=== PATIENT | female | born 2000 | race Caucasian/White ===

== ENCOUNTER 2024-01-08 15:43 | Outpatient (CLI) | payer BC, SELFPAY ==
--- NOTE | ~2024-01-08 | US_ITS ---
US breast RT limited DATE: 01/08/2024 15:54 INDICATION: Right 9:00 breast lump TECHNIQUE: Real-time and color flow imaging targeted right breast 9:00 6 cm from nipple an area of pa lpable lump COMPARISON: None FINDINGS: There is a circumscribed solid lesion with mildly lobular outline, with mild internal vascu larity on color flow imaging, with some areas of through transmission and some areas of posterior sha dowing. The lesion measures approximately 1.8 x 2.9 x 2.9 cm dimension. IMPRESSION: Probable benign fibroadenoma BI-RADS Category 3: Probably benign Recommendation: 6 month right targeted breast ultrasound follow-up If tissue diagnosis is desired, this would be amenable to ultrasound-guided percutaneous needle biops y. Reviewed, dictated and finalized at [facility]. Reviewed, dictated and finalized at [facility]. IMPRESSION: Probable benign fibroadenoma BI-RADS Category 3: Probably benign Recommendation: 6 month right targeted breast ultrasound follow-up If tissue diagnosis is desired, this would be amenable to ultrasound-guided per cutaneous needle biopsy.
== END 2024-01-08 15:44 ==
LOC: MICIMG 15:43
PROVIDERS: PCP Obstetrics & Gynecology; Visit Provider Obstetrics & Gynecology
DX: N63.10 Unspecified lump in the right breast, unspecified quadrant (principal); R92.8 Other abnormal and inconclusive findings on diagnostic imaging of breast
CPT/HCPCS: 76642